=== PATIENT | male | born 1985 | race Caucasian/White ===

== ENCOUNTER 2018-03-08 18:36 | Emergency (ER) | payer OTHER, BC ==
[2018-03-08 18:49] VITALS: BP 151/78
--- NOTE | 2018-03-08 19:43 | EDM.PDOC ---
ED HPI GENERAL MEDICAL PROBLEM - General Chief Complaint: Neurological Problem Stated Complaint: LEFT SIDE NUMBNESS AND HEAD AND SHAKES SOB Time Seen by Provider: 03/08/18 19:00 Source of Information: Reports: Patient History Limitations: Reports: No Limitations - History of Present Illness INITIAL COMMENTS - FREE TEXT/NARRATIVE: This is a 32-year-old male. For the last several months he's been having persistent headaches that at times her all over and seemed to be more of a pounding but they always seem to get better when he starts moving around or working. Today after working as he was coming home the headache got markedly worse and he felt like he had some visual changes and his eyes though we never experienced blindness or loss of vision. He got numbness in the left side of his face and numbness in his fingers he felt weak but he was still able to use his left upper extremity. He states he got rather anxious and was breathing rapidly. He denies any nausea and vomiting. He states that getting up and moving around seems to ease the headache up some. He's been to a chiropractor in the past and have them work on his neck but it didn't seem to really help the headaches. Due to the neurological symptoms and the headache he comes to the ER this evening. He states the headache feels more like a pressure that is constant mostly in the back and maybe right side of his head. He's never really had a workup for his headaches since they started. He is feeling a little better now much of the numbness and tingling is easing up. He denies any abdominal cramping denies any recent illnesses has had no diarrhea. 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 Psychiatric History: Reports: Anxiety Social & Family History - Family History Family Medical History: Noncontributory - Tobacco Use Smoking Status *Q: Current Every Day Smoker Years of Tobacco use: 10 Packs/Tins Daily: 1 - Caffeine Use Caffeine Use: Reports: Coffee - Recreational Drug Use Recreational Drug Use: No Drug Use in Last 12 Months: Yes Recreational Drug Type: Reports: Amphetamines (Speed), Marijuana/Hashish, Methamphetamine Recreational Drug Use Frequency: Weekly - Living Situation & Occupation Living situation: Reports: with Family ED ROS GENERAL - Review of Systems Review Of Systems: See Below Constitutional: Denies: Fever, Chills HEENT: Reports: Other (Decreased in hearing, change in vision as per history of present illness) Respiratory: Reports: Shortness of Breath. Denies: Cough Cardiovascular: Denies: Chest Pain Endocrine: Reports: No Symptoms GI/Abdominal: Reports: No Symptoms : Reports: No Symptoms Musculoskeletal: Reports: Other (As per history of present illness) Skin: Reports: No Symptoms Neurological: Reports: No Symptoms (As per history of present illness) Psychiatric: Reports: Anxiety Hematologic/Lymphatic: Reports: No Symptoms ED EXAM, NEURO - Physical Exam Exam: See Below Exam Limited By: No Limitations General Appearance: Alert, WD/WN, No Apparent Distress Eye Exam: Bilateral Eye: Normal Inspection Ears: Normal External Exam, Normal Canal, Normal TMs Nose: Normal Inspection Throat/Mouth: Normal Inspection, Normal Lips, Normal Voice, No Airway Compromise Head Exam: Normocephalic Neck: Supple. No: Carotid Bruit Respiratory/Chest: No Respiratory Distress, Lungs Clear, Normal Breath Sounds Cardiovascular: Regular Rate, Rhythm, No Murmur GI/Abdominal: Soft, Non-Tender Neurological: Alert, Normal Mood/Affect, Other (He complains of some mild tingling or numbness in his left hand and left face but palpation or touching and light touching he can still feel, he has excellent symmetrical warehouse order puller, he has no significant weakness with that left upper extremity noted.) Back Exam: Full Range of Motion Extremities: Normal Inspection, Normal Range of Motion Psychiatric: Normal Affect, Normal Mood Skin Exam: Warm, Dry Course - Vital Signs Last Recorded V/S: Last Vital Signs Temp 99.2 F 03/08/18 18:47 Pulse 84 03/08/18 18:47 Resp 20 03/08/18 18:47 BP 151/78 H 03/08/18 18:47 Pulse Ox 100 03/08/18 18:47 - Orders/Labs/Meds Orders: Active Orders 24 hr Category Date Time Status DRUG SCREEN, URINE [URCHEM] Stat Lab 03/08/18 19:15 Ordered Labs: Laboratory Tests 03/08/18 03/08/18 03/08/18 Range/Units 19:15 19:58 19:58 WBC 8.46 (4.23-9.07) K/mm3 RBC 4.71 (4.63-6.08) M/mm3 Hgb 14.6 (13.7-17.5) gm/L Hct 42.1 (40.1-51.0) % MCV 89.4 (79.0-92.2) fl MCH 31.0 (25.7-32.2) pg MCHC 34.7 (32.2-35.5) g/dl RDW Std Deviation 39.4 (35.1-43.9) fL Plt Count 226 (163-337) K/mm3 MPV 10.1 (9.4-12.3) fl Neut % (Auto) 66.3 (34.0-67.9) % Lymph % (Auto) 18.4 L (21.8-53.1) % [place] % (Auto) 13.4 H (5.3-12.2) % Eos % (Auto) 1.3 (0.8-7.0) Baso % (Auto) 0.4 (0.1-1.2) % Neut # (Auto) 5.61 H (1.78-5.38) K/mm3 Lymph # (Auto) 1.56 (1.32-3.57) K/mm3 [place] # (Auto) 1.13 H (0.30-0.82) K/mm3 Eos # (Auto) 0.11 (0.04-0.54) K/mm3 Baso # (Auto) 0.03 (0.01-0.08) K/mm3 Sodium 140 (136-145) mEq/L Potassium 3.9 (3.5-5.1) mEq/L Chloride 104 (98-107) mEq/L Carbon Dioxide 27 (21-32) mEq/L Anion Gap 12.9 (5-15) BUN 20 H (7-18) mg/dL Creatinine 1.0 (0.7-1.3) mg/dL Est Cr Clr Drug Dosing 103.55 mL/min Estimated GFR (MDRD) > 60 (>60) mL/min BUN/Creatinine Ratio 20.0 H (14-18) Glucose 108 H (74-106) mg/dL Calcium 9.2 (8.5-10.1) mg/dL Total Bilirubin 0.3 (0.2-1.0) mg/dL AST 22 (15-37) U/L ALT 26 (16-63) U/L Alkaline Phosphatase 66 (46-116) U/L Total Protein 7.2 (6.4-8.2) g/dl Albumin 4.2 (3.4-5.0) g/dl Globulin 3.0 gm/dL Albumin/Globulin Ratio 1.4 (1-2) TSH 3rd Generation 2.769 (0.358-3.74) uIU/mL Urine Opiates Screen Negative (NEGATIVE) Ur Buprenorphine Scrn Negative (NEGATIVE) Ur Oxycodone Screen Negative (NEGATIVE) Urine Methadone Screen Negative (NEGATIVE) Ur Propoxyphene Screen Negative (NEGATIVE) Ur Barbiturates Screen Negative (NEGATIVE) Ur Tricyclics Screen Negative (NEGATIVE) Ur Phencyclidine Scrn Negative (NEGATIVE) Ur Amphetamine Screen Negative (NEGATIVE) U Methamphetamines Scrn Negative (NEGATIVE) U Benzodiazepines Scrn Negative (NEGATIVE) U Cocaine Metab Screen Negative (NEGATIVE) U Marijuana (THC) Screen Negative (NEGATIVE) - Radiology Interpretation Free Text/Narrative:: CT scan of the head did not show any acute changes and was very similar to the study done in 10/2016. - Re-Assessments/Exams Free Text/Narrative Re-Assessment/Exam: 03/08/18 20:55 I told the patient the results the CAT scan was normal. He still has a mild headache and I asked him if he wanted anything for the headache and he said no. 03/08/18 22:04 I spoke to the patient and his regarding the CT scan and the blood work. He was exposed to some benzene and hydrocarbon gas from the [place] today that might have exacerbated his headache symptoms. I suggested he wear a respirator since he gets exposed to these gases frequently. He denies any exposure to H2 S gas. I am going to refer him to Dr. 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 The patient is feeling good enough to go home and wants to go home Departure - Departure Time of Disposition: 22:05 Disposition: Home, Self-Care 01 Condition: Good Clinical Impression: Headache, Exposure to polycyclic aromatic hydrocarbons - Discharge Information Referrals: PCP,None [Primary Care Provider] - Leobardo Green MD [Physician] - Forms: ED Department Discharge Additional Instructions: Rest over the weekend, you may do gentle normal activities, certainly take some [id number]-toksdce medication such as Aleve or ibuprofen or Tylenol if the headache seems to worsen, avoid exposure to the benzene and hydrocarbons and wear a respirator when you're around well heads and the tanks, follow-up with Dr. Romero for continued workup for these headaches, return to the ER if there's marked worsening - My Orders Last 24 Hours: My Active Orders 03/08/18 19:15 DRUG SCREEN, URINE [URCHEM] Stat - Assessment/Plan Last 24 Hours: My Active Orders 03/08/18 19:15 DRUG SCREEN, URINE [URCHEM] Stat
--- NOTE | 2018-03-08 20:14 | CT ---
Head CT Technique: Multiple axial sections were obtained through the brain. Intravenous contrast was not utilized. Comparison: Prior head CT exam of 11/10/16. Findings: Ventricles along with basal cisterns and sulci over the convexities are within normal limits for the patient's age. No abnormal parenchymal densities are seen. No evidence of intracranial hemorrhage. No midline shift or mass effect is seen. Bone window settings were reviewed which shows no acute calvarial abnormality. Visualized sinuses are clear. Impression: 1. No acute intracranial abnormality is appreciated. Study appears similar to previous head CT exam. Diagnostic code #1
== END 2018-03-08 22:17 | disposition home or self-care (01) ==
LOC: JD.ED 18:36
DX: R51 Headache (principal); F17.210 Nicotine dependence, cigarettes, uncomplicated; Z77.028 Contact with and (suspected) exposure to other hazardous aromatic compounds
CPT/HCPCS: 36415; 70450; 70450-26; 80053; 80306; 84443; 85025; 99284; 99284-25

== ENCOUNTER 2018-06-29 16:23 | Emergency (ER) | payer SELFPAY ==
[2018-06-29 16:32] VITALS: BP 127/77
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
--- NOTE | 2018-07-01 10:50 | CT ---
Head CT Technique: Multiple axial sections through the brain were obtained. Intravenous contrast was not utilized. Comparison: Prior head CT study of 03/08/18. Findings: Ventricles along with basal cisterns and sulci over the convexities are within normal limits. No abnormal parenchymal densities are seen. No evidence of intracranial hemorrhage. No midline shift or mass effect is seen. Visualized sinuses are clear. No acute calvarial abnormality is seen. Impression: 1. Nothing acute seen on noncontrast head CT study. No significant change is seen from previous study. Diagnostic code #1 I agree with preliminary report issued by [facility] ([facility] report finalized on 06/29/18, 6:13 PM Central Time)
== END 2018-06-29 17:47 | disposition home or self-care (01) ==
LOC: SUPCPDRO 16:23 → JD.ED 16:23
DX: S06.0X0A Concussion without loss of consciousness, initial encounter (principal); I10 Essential (primary) hypertension; V94.0XXA Hitting object or bottom of body of water due to fall from watercraft, initial encounter
CPT/HCPCS: 70450; 70450-26; 99283; 99284-25

== ENCOUNTER 2019-09-14 21:28 | Emergency (ER) | payer SELFPAY ==
[2019-09-14 21:48] VITALS: BP 140/100; PULSE 80
[2019-09-14] MEDS ORDERED: Ondansetron 4 MG/2 ML SDV IVPUSH ONE (22:54)
[2019-09-14] MEDS ORDERED: Sodium Chloride 0.9% 1,000 ML IV SCH (23:00)
--- NOTE | 2019-09-14 23:02 | EDM.PDOC ---
ED HPI GENERAL MEDICAL PROBLEM - General Chief Complaint: Genitourinary Problem Stated Complaint: groin and abdomen pain Time Seen by Provider: 09/14/19 22:35 Source of Information: Reports: Patient History Limitations: Reports: No Limitations - History of Present Illness INITIAL COMMENTS - FREE TEXT/NARRATIVE: Mr. Palma is a pleasant-enough 34-year-old man with a past medical history significant for depression and anxiety, for which she takes clonazepam, as well as long-standing use of amphetamine/methamphetamine and marijuana. He states that he has had pain to the right base of his penis and upper right scrotum on off for the past 2 months, which he states worsened after he intentionally twisted his back while in the shower around 21:00 tonight. At the same time, he developed pain to his right lower quadrant, which is new for him. The pain radiates into his right upper quadrant. He also reports pressure to the right side of his head which has been coming and going for the past year. Prior evaluators have told him that it is related to his anxiety. He states that the pressure to his head recurred en route to the ED. The patient denies having dysuria, but reports having occasional urinary urgency. No recent fever or vomiting, but he states that he has had both nausea and constipation today, and watery diarrhea last night. He reports an occasional cough productive of yellow and black sputum since yesterday. It is unclear if he has been experiencing dyspnea, chest pain, or palpitations, although he said yes when I asked him if he has been experiencing those symptoms. Here in the ED, the patient is afebrile, saturating 99% on room air. The patient's PCP is STEPHAN Gan. The patient has not received an influenza vaccine this season. Right Pelvic Pain Score (Numeric/FACES): 10 - Related Data Allergies Allergy/AdvReac Type Severity Reaction Status Date / Time No Known Allergies Allergy Verified 06/18/18 13:12 Home Meds: Home Meds ClonazePAM [KlonoPIN] 0.5 mg PO Q12H PRN 06/29/18 [History] Past Medical History Psychiatric History: Reports: Anxiety, Depression (untreated) - Past Surgical History HEENT Surgical History: Reports: Oral Surgery (wisdom teeth extraction) Respiratory Surgical History: Reports: Other (See Below) (Bronchoscopy to remove a benign tumor) Social & Family History - Family History Family Medical History: Noncontributory - Tobacco Use Smoking Status *Q: Current Every Day Smoker Years of Tobacco use: 24 Packs/Tins Daily: 1 Packs/Tins Daily Comment: Down from 2 ppd - Caffeine Use Caffeine Use: Reports: Coffee - Alcohol Use Alcohol Use History: Yes Alcohol Use Frequency: Socially - Recreational Drug Use Recreational Drug Use: Yes Drug Use in Last 12 Months: Yes Recreational Drug Type: Reports: Amphetamines (Speed) (last used midAug 2019), Marijuana/Hashish (smokes regularly), Methamphetamine (last smoked/injected Aug 2019) - Living Situation & Occupation Living situation: Reports: , with Spouse, with Family (2 kids) Occupation: Employed ([employer]) ED ROS GENERAL - Review of Systems Review Of Systems: ROS reveals no pertinent complaints other than HPI. ED EXAM, GENERAL - Physical Exam Exam: See Below Exam Limited By: No Limitations General Appearance: Alert, WD/WN, No Apparent Distress Eye Exam: Bilateral Eye: EOMI, Normal Inspection Ears: Normal External Exam, Hearing Grossly Normal Nose: Normal Inspection Throat/Mouth: Normal Inspection, Normal Lips, Normal Voice, No Airway Compromise Head: Atraumatic, Normocephalic Neck: Normal Inspection, Full Range of Motion Respiratory/Chest: No Respiratory Distress, Lungs Clear, Normal Breath Sounds, No Accessory Muscle Use. No: Decreased Breath Sounds, Crackles, Rhonchi, Wheezing, Stridor, Prolonged Expiration Cardiovascular: Normal Peripheral Pulses, Regular Rate, Rhythm, No Edema, No Gallop, No JVD, No Murmur, No Rub Peripheral Pulses: 4+: Radial (L), Radial (R) GI/Abdominal: Normal Bowel Sounds, Soft, No Organomegaly, No Distention, No Abnormal Bruit, No Mass, Tender (Right lower quadrant only. Nontender elsewhere , including to the right upper quadrant.) (Male) Exam: No Hernia, Normal Inspection, Circumcised Rectal (Males) Exam: Deferred Back Exam: Normal Inspection, Full Range of Motion, NT Extremities: Normal Inspection, Normal Range of Motion, No Pedal Edema, Normal Capillary Refill Neurological: Alert, Oriented, Normal Cognition, No Motor/Sensory Deficits Psychiatric: Normal Affect Skin Exam: Warm, Dry, Intact, Normal Color, No Rash EKG INTERPRETATION EKG Date: 09/14/19 Time: 23:28 Rhythm: NSR Rate (Beats/Min): 66 Stem: Normal P-Wave: Present QRS: Normal ST-T: Normal QT: Normal Comparison: No Change (06/18/2018) Course - Vital Signs Last Recorded V/S: Last Vital Signs Temp 36.8 C 09/14/19 21:45 Pulse 80 09/14/19 21:45 Resp 20 09/14/19 21:45 BP 140/100 H 09/14/19 21:45 Pulse Ox 99 09/14/19 21:45 - Orders/Labs/Meds Orders: Active Orders 24 hr Category Date Time Status EKG Documentation Completion [RC] STAT Care 09/14/19 22:56 Active Abdomen Pelvis w Cont [CT] Stat Exams 09/14/19 22:54 Taken Chest 2V [CR] Stat Exams 09/14/19 22:56 Taken Sodium Chloride 0.9% [Normal Saline] 1,000 ml Med 09/14/19 23:00 Active IV ASDIRECTED Medication Orders Sodium Chloride (Normal Saline) 1,000 mls @ 150 mls/hr IV ASDIRECTED TU Last Admin: 09/14/19 23:12 Dose: 150 mls/hr Labs: Laboratory Tests 09/14/19 09/14/19 09/14/19 Range/Units 23:12 23:12 23:12 WBC 11.41 H (4.23-9.07) K/mm3 RBC 4.81 (4.63-6.08) M/mm3 Hgb 14.7 (13.7-17.5) gm/dl Hct 42.6 (40.1-51.0) % MCV 88.6 (79.0-92.2) fl MCH 30.6 (25.7-32.2) pg MCHC 34.5 (32.2-35.5) g/dl RDW Std Deviation 38.8 (35.1-43.9) fL Plt Count 287 (163-337) K/mm3 MPV 9.9 (9.4-12.3) fl Neutrophils % (Manual) 65 H (40-60) % Band Neutrophils % 0 (0-10) % Lymphocytes % (Manual) 21 (20-40) % Atypical Lymphs % 0 % Monocytes % (Manual) 12 H (2-10) % Eosinophils % (Manual) 1 (0.8-7.0) % Basophils % (Manual) 1 (0.2-1.2) Platelet Estimate Adequate Plt Morphology Comment Normal RBC Morph Comment Normal D-Dimer, Quantitative 0.20 (0.19-0.50) mg/L Sodium 139 (136-145) mEq/L Potassium 3.8 (3.5-5.1) mEq/L Chloride 103 (98-107) mEq/L Carbon Dioxide 27 (21-32) mEq/L Anion Gap 12.8 (5-15) BUN 19 H (7-18) mg/dL Creatinine 0.9 (0.7-1.3) mg/dL Est Cr Clr Drug Dosing 120.54 mL/min Estimated GFR (MDRD) > 60 (>60) mL/min BUN/Creatinine Ratio 21.1 H (14-18) Glucose 104 (74-106) mg/dL Calcium 8.8 (8.5-10.1) mg/dL Magnesium 2.0 (1.8-2.4) mg/dl Total Bilirubin 0.4 (0.2-1.0) mg/dL AST 14 L (15-37) U/L ALT 24 (16-63) U/L Alkaline Phosphatase 67 (46-116) U/L Troponin I < 0.017 (0.00-0.056) ng/mL Total Protein 7.2 (6.4-8.2) g/dl Albumin 4.1 (3.4-5.0) g/dl Globulin 3.1 gm/dL Albumin/Globulin Ratio 1.3 (1-2) Lipase 77 (73-393) U/L Urine Color (Yellow) Urine Appearance (Clear) Urine pH (5.0-8.0) Ur Specific [place] (1.005-1.030) Urine Protein (Negative) Urine Glucose (UA) (Negative) Urine Ketones (Negative) Urine Occult Blood (Negative) Urine Nitrite (Negative) Urine Bilirubin (Negative) Urine Urobilinogen (0.2-1.0) Ur Leukocyte Esterase (Negative) Urine RBC (0-5) /hpf Urine WBC (0-5) /hpf Ur Epithelial Cells (0-5) /hpf Urine Bacteria (FEW) /hpf Urine Mucus (FEW) /hpf Urine Opiates Screen (EYWCRM=661) Ur Buprenorphine Scrn (CUTOFF=10) Ur Oxycodone Screen (HNB5ZQ=253) Urine Methadone Screen (NVE6UR=479) Ur Propoxyphene Screen (HPZXHQ=552) Ur Barbiturates Screen (ZATIHF=944) Ur Tricyclics Screen (FETLWO=667) Ur Phencyclidine Scrn (CUTOFF=25) Ur Amphetamine Screen (RWKOQN=961) U Methamphetamines Scrn (RYYFIF=062) U Benzodiazepines Scrn (CQIRFO=381) U Cocaine Metab Screen (TWVQOX=342) U Marijuana (THC) Screen (CUTOFF=50) 09/14/19 09/14/19 Range/Units 23:59 23:59 WBC (4.23-9.07) K/mm3 RBC (4.63-6.08) M/mm3 Hgb (13.7-17.5) gm/dl Hct (40.1-51.0) % MCV (79.0-92.2) fl MCH (25.7-32.2) pg MCHC (32.2-35.5) g/dl RDW Std Deviation (35.1-43.9) fL Plt Count (163-337) K/mm3 MPV (9.4-12.3) fl Neutrophils % (Manual) (40-60) % Band Neutrophils % (0-10) % Lymphocytes % (Manual) (20-40) % Atypical Lymphs % % Monocytes % (Manual) (2-10) % Eosinophils % (Manual) (0.8-7.0) % Basophils % (Manual) (0.2-1.2) Platelet Estimate Plt Morphology Comment RBC Morph Comment D-Dimer, Quantitative (0.19-0.50) mg/L Sodium (136-145) mEq/L Potassium (3.5-5.1) mEq/L Chloride (98-107) mEq/L Carbon Dioxide (21-32) mEq/L Anion Gap (5-15) BUN (7-18) mg/dL Creatinine (0.7-1.3) mg/dL Est Cr Clr Drug Dosing mL/min Estimated GFR (MDRD) (>60) mL/min BUN/Creatinine Ratio (14-18) Glucose (74-106) mg/dL Calcium (8.5-10.1) mg/dL Magnesium (1.8-2.4) mg/dl Total Bilirubin (0.2-1.0) mg/dL AST (15-37) U/L ALT (16-63) U/L Alkaline Phosphatase (46-116) U/L Troponin I (0.00-0.056) ng/mL Total Protein (6.4-8.2) g/dl Albumin (3.4-5.0) g/dl Globulin gm/dL Albumin/Globulin Ratio (1-2) Lipase (73-393) U/L Urine Color Light yellow (Yellow) Urine Appearance Clear (Clear) Urine pH 6.0 (5.0-8.0) Ur Specific [place] 1.010 (1.005-1.030) Urine Protein Negative (Negative) Urine Glucose (UA) Negative (Negative) Urine Ketones Negative (Negative) Urine Occult Blood Negative (Negative) Urine Nitrite Negative (Negative) Urine Bilirubin Negative (Negative) Urine Urobilinogen 0.2 (0.2-1.0) Ur Leukocyte Esterase Negative (Negative) Urine RBC 0-5 (0-5) /hpf Urine WBC 0-5 (0-5) /hpf Ur Epithelial Cells Not seen (0-5) /hpf Urine Bacteria Rare (FEW) /hpf Urine Mucus Rare (FEW) /hpf Urine Opiates Screen Negative (BLJAHQ=075) Ur Buprenorphine Scrn Negative (CUTOFF=10) Ur Oxycodone Screen Negative (YTY5SD=476) Urine Methadone Screen Negative (EFR5UK=862) Ur Propoxyphene Screen Negative (ZGWQFC=703) Ur Barbiturates Screen Negative (RCRVIZ=518) Ur Tricyclics Screen Negative (ANXPBB=379) Ur Phencyclidine Scrn Negative (CUTOFF=25) Ur Amphetamine Screen Presumptive positive H (NGHCDP=470) U Methamphetamines Scrn Presumptive positive H (KCKHWZ=546) U Benzodiazepines Scrn Negative (JSZDLY=109) U Cocaine Metab Screen Negative (BFMADC=292) U Marijuana (THC) Screen Negative (CUTOFF=50) Meds: Medications Generic Name Dose Route Start Last Admin Trade Name Freq PRN Reason Stop Dose Admin Sodium Chloride 1,000 mls @ 150 mls/hr 09/14/19 23:00 09/14/19 23:12 Normal Saline IV 150 mls/hr ASDIRECTED TU Administration Discontinued Medications Generic Name Dose Route Start Last Admin Trade Name Freq PRN Reason Stop Dose Admin Iopamidol 100 ml 09/15/19 00:11 09/15/19 00:14 Isovue-300 (61%) IVPUSH 09/15/19 00:12 100 ml ONETIME ONE Administration Ondansetron HCl 4 mg 09/14/19 22:54 09/14/19 23:12 Zofran IVPUSH 09/14/19 22:55 4 mg ONETIME ONE Administration - Re-Assessments/Exams Free Text/Narrative Re-Assessment/Exam: 09/14/19 22:58 I strongly suspect that the patient's use of methamphetamine is influencing leif's presentation, however, if I were to take the patient at his word, then I would be concerned about appendicitis or pneumonia, or, less likely, a PE or dysrhythmia related to methamphetamine use, or, much less likely, a UTI. I have ordered a rather extensive workup that includes blood work, a urinalysis , a urine drug screen, a chest x-ray, a CT of his abdomen and pelvis with oral and IV contrast, and an ECG. In the meantime, the patient will receive IV fluid and IV Zofran. 09/15/19 00:48 CT of the abdomen and pelvis with oral and IV contrast is read by [facility] as "No acute findings." 2-view chest radiograph appears to be grossly normal. The cardiac silhouette is within normal limits. No pulmonary vascular congestion. No pleural effusions. No focal infiltrate. No pneumothorax. Formal read per the Radiologist pending. 09/15/19 03:09 Test results discussed with the patient. Leif's workup is unremarkable, and does not explain the cause of his symptoms. He is not anemic. No significant Flexeril at abnormalities were found. He is not dehydrated. He does not of a urinary tract infection. He does not have pneumonia. He does not have appendicitis. No recent damage to his heart was found. He does not have a pulmonary embolus. No dysrhythmias were found. The only abnormality that we found is that his urine drug screen is positive for both amphetamine and methamphetamine, which we anticipated, since he acknowledged that he used both last week. I recommended to the patient that he follow-up with his PCP, STEPHAN Gan, if his symptoms persist. The patient agreed. Departure - Departure Time of Disposition: 03:11 Disposition: Home, Self-Care 01 Condition: Good Clinical Impression: Right lower quadrant abdominal pain of unknown etiology, Headache, Methamphetamine abuse - Discharge Information *PRESCRIPTION DRUG MONITORING PROGRAM REVIEWED*: Not Applicable *COPY OF PRESCRIPTION DRUG MONITORING REPORT IN PATIENT YEN: Not Applicable Referrals: Justin Reese PA-C [Physician National Sales Manager] - Forms: ED Department Discharge Additional Instructions: You were seen in the emergency room for pain to your right groin and lower right abdomen, radiating to your upper right abdomen, along with head pressure, urinary urgency, and occasional cough, nausea, constipation, watery diarrhea, shortness of breath, chest pain, and palpitations. Workup in the ER included blood work, a urinalysis, a urine drug screen, a chest x-ray, a CT scan of your abdomen and pelvis with oral and IV contrast, and an ECG. Urine drug screen was positive for both amphetamine and methamphetamine, otherwise, your entire workup was unremarkable. You do not have appendicitis. You do not have pneumonia. You do not have a blood clot in your lungs. He have not had a recent heart attack, and no abnormal rhythms were found on your ECG. You are not anemic, and no significant electrolyte abnormalities were found. We strongly recommend that you seek professional help to stop using amphetamine and methamphetamine. If your symptoms persist, we recommend that you follow-up with your PCP, STEPHAN Gan, for further evaluation. If any other problems, please do not hesitate to return to the ER. - My Orders Last 24 Hours: My Active Orders 09/14/19 22:54 Abdomen Pelvis w Cont [CT] Stat 09/14/19 22:56 EKG Documentation Completion [RC] STAT Chest 2V [CR] Stat 09/14/19 23:00 Sodium Chloride 0.9% [Normal Saline] 1,000 ml IV ASDIRECTED - Assessment/Plan Last 24 Hours: My Active Orders 09/14/19 22:54 Abdomen Pelvis w Cont [CT] Stat 09/14/19 22:56 EKG Documentation Completion [RC] STAT Chest 2V [CR] Stat 09/14/19 23:00 Sodium Chloride 0.9% [Normal Saline] 1,000 ml IV ASDIRECTED
[2019-09-15] MEDS ORDERED: Iopamidol 612 MG/ML 100 ML Bottle IVPUSH ONE (00:11)
--- NOTE | 2019-09-15 06:54 | CR ---
Chest: Two views of the chest were obtained. Comparison: Prior chest x-ray of 06/18/18. Heart size and mediastinum are within normal limits. Lungs shows a nodule within the left mid chest which is stable from prior study in 2016 and therefore felt to be incidental. Lungs otherwise are clear. Bony structures appear within normal limits for the patient's age. Impression: 1. Nodule within the left mid chest seen on prior study from 2016. This is therefore incidental. 2. Nothing acute is appreciated on two-view chest x-ray. Diagnostic code #2
--- NOTE | 2019-09-15 07:05 | CT ---
CT abdomen and pelvis Technique: Multiple axial sections were obtained from above the dome of the diaphragm inferiorly through the pubic symphysis. Intravenous and oral contrast was utilized. Delayed images were also obtained through the bladder. Comparison: No prior abdominal imaging is available. Findings: Liver contains no focal abnormality. Spleen appears within normal limits. Adrenal glands show no nodule. Pancreas is within normal limits. Kidneys show symmetric contrast enhancement without hydronephrosis or mass. Gallbladder contains no calcified gallstones. Aorta shows no aneurysm. No retroperitoneal adenopathy or mesenteric abnormalities are seen. No pelvic mass or adenopathy is seen. No free fluid or inflammatory change is seen. Slight increased stool is noted within the colon. Appendix not visualized with certainty. Bone window settings were reviewed which appear within normal limits for the patient's age. Delayed images show contrast within the bladder as well as within the distal ureters. Impression: 1. Nothing acute is appreciated on CT study of the abdomen and pelvis. 2. Appendix not visualized with certainty. 3. Mild increased stool within the colon. Diagnostic code #2 I agree with preliminary report from [facility], finalized on 09/15/19, 1:32 AM Central Time
== END 2019-09-15 03:40 | disposition home or self-care (01) ==
LOC: JD.ED 21:28
DX: R10.31 Right lower quadrant pain (principal); R51 Headache; F15.10 Other stimulant abuse, uncomplicated; F41.9 Anxiety disorder, unspecified; F17.210 Nicotine dependence, cigarettes, uncomplicated
CPT/HCPCS: 36415; 71046; 74177; 80053; 80306; 81001; 83690; 83735; 84484; 85007; 85027; 85379; 93005; 96361; 96374; 99284; J2405; J7040; Q9967; 93010; 99283

== ENCOUNTER 2020-10-26 02:57 | Emergency (ER) | payer SELFPAY ==
[2020-10-26 03:12] VITALS: BP 137/90; PULSE 82
[2020-10-26] MEDS ORDERED: Haloperidol Lactate 5 MG/ML SDV IM ONE (03:33)
[2020-10-26] MEDS ORDERED: Benztropine 1 MG Tab PO STA (03:33)
--- NOTE | 2020-10-26 03:38 | EDM.PDOC ---
ED HPI GENERAL MEDICAL PROBLEM - General Chief Complaint: General Stated Complaint: RIGHT SIDE NUMB Time Seen by Provider: 10/26/20 03:19 Source of Information: Reports: Patient History Limitations: Reports: No Limitations - History of Present Illness INITIAL COMMENTS - FREE TEXT/NARRATIVE: Mr. Palma is a very pleasant 35-year-old gentleman who now presents to the ED with right face and body tingling, along with right head pressure and right eye blurry vision, that began around 2:00 this morning, after he was woken by hearing a "pop" in his head. He denies having a headache, per se. No associated nausea. He states that his tingling and numbness has improved since its onset. He did not take any [id number] or home remedies prior to coming to the ED. The patient states that he has had similar symptoms numerous times, about once a month, over the past 2 years. He has been seeing his PCP, who has ordered work- ups that includes CT scans and MRIs, all of which have been unremarkable. He states that his PCP believes that his symptoms are due to anxiety, currently being treated by clonazepam on an as-needed basis, although the patient states that he does not believe that his symptoms are related to anxiety. He expects to be referred to a Neurologist for further evaluation, although an appointment has not yet been made. Here in the ED, the patient is found to be hemodynamically stable, afebrile, saturating 96% on room air. Other than his recurrent symptoms as above, the patient also reports having recent constipation. Otherwise, the patient denies having a recent fever, chills, sore throat, ear pain, nasal or sinus congestion, cough, dyspnea, chest pain, palpitations, nausea, vomiting, diarrhea, abdominal pain, urinary symptoms, recent weight gain or weight loss, recent bloody bowel movements or black bowel movements, recent joint aches, headaches, or rashes. The patient's PCP is STEPHAN Gna. He has not received an influenza vaccine this season, and declined an offer to receive one here today. Headache Pain Score (Numeric/FACES): 3 - Related Data Allergies Allergy/AdvReac Type Severity Reaction Status Date / Time No Known Allergies Allergy Verified 10/26/20 03:04 Home Meds: Home Meds ClonazePAM [KlonoPIN] 0.5 mg PO Q12H PRN 06/29/18 [History] Rizatriptan Benzoate [Rizatriptan] 1 tab PO ASDIRECTED PRN #3 tab.rapdis 10/26/20 [Rx] Past Medical History Psychiatric History: Reports: Anxiety - Past Surgical History HEENT Surgical History: Reports: Oral Surgery (dental extractions) Respiratory Surgical History: Reports: Other (See Below) (Bronchoscopy for benign airway tumor) Social & Family History - Tobacco Use Tobacco Use Status *Q: Current Every Day Tobacco User Years of Tobacco use: 24 Packs/Tins Daily: 1 Packs/Tins Daily Comment: Down from 2 ppd - Caffeine Use Caffeine Use: Reports: Coffee - Alcohol Use Alcohol Use History: No - Recreational Drug Use Recreational Drug Use: Yes Drug Use in Last 12 Months: Yes Recreational Drug Type: Reports: Marijuana/Hashish (smokes about twice a week), Methamphetamine (last smoked, injected around 2015), Psilocybin (Mushrooms) (last took around 2009), Other (see below) (The patient states that he has taken many other drugs in the past, except heroin) - Living Situation & Occupation Living situation: Reports: , with Spouse, with Family (2 kids) Occupation: Unemployed ED ROS GENERAL - Review of Systems Review Of Systems: Comprehensive ROS is negative, except as noted in HPI. ED EXAM, NEURO - Physical Exam Exam: See Below Exam Limited By: No Limitations General Appearance: Alert, WD/WN, No Apparent Distress Eye Exam: Bilateral Eye: EOMI, Normal Inspection Ears: Normal External Exam, Hearing Grossly Normal Nose: Normal Inspection Throat/Mouth: Normal Inspection, Normal Lips, Normal Voice, No Airway Compromise Head Exam: Atraumatic, Normocephalic Neck: Normal Inspection, Full Range of Motion Respiratory/Chest: No Respiratory Distress, Lungs Clear, Normal Breath Sounds, No Accessory Muscle Use Cardiovascular: Normal Peripheral Pulses, Regular Rate, Rhythm, No Edema, No Gallop, No JVD, No Murmur, No Rub GI/Abdominal: Normal Bowel Sounds, Soft, Non-Tender, No Organomegaly, No Distention, No Abnormal Bruit, No Mass Neurological: Alert, Normal Dorsiflexion, CN II-XII Intact, Normal Plantar Flexion, Oriented x 3, Other (Normal motor function of the bilateral upper and lower extremities. The patient reports slightly decreased sensation to the right side of his head/face, into his right upper and lower extremities.) Back Exam: Normal Inspection, Full Range of Motion, NT Extremities: Normal Inspection, Normal Range of Motion, No Pedal Edema, Normal Capillary Refill Psychiatric: Normal Affect Skin Exam: Warm, Dry, Intact, Normal Color, No Rash Course - Vital Signs Last Recorded V/S: Last Vital Signs Temp 36.4 C 10/26/20 03:07 Pulse 82 10/26/20 03:07 Resp 17 10/26/20 03:07 BP 137/90 10/26/20 03:07 Pulse Ox 96 10/26/20 03:07 - Orders/Labs/Meds Meds: Medications Discontinued Medications Generic Name Dose Route Start Last Admin Trade Name Tereso PRN Reason Stop Dose Admin Benztropine Mesylate 1 mg 10/26/20 03:33 10/26/20 03:47 Cogentin PO 10/26/20 03:34 1 mg ONETIME STA Administration Haloperidol Lactate 5 mg 10/26/20 03:33 10/26/20 03:46 Haldol IM 10/26/20 03:34 5 mg ONETIME ONE Administration - Re-Assessments/Exams Free Text/Narrative Re-Assessment/Exam: 10/26/20 03:33 As above, the patient woke this morning after hearing a pop in his head, then developed right-sided tingling/numbness, which has since improved, although not yet resolved. While he denies having a headache, he does report having right- sided head pressure and some blurry vision. No associated nausea. He states that he has been getting similar symptoms about once a month over the past 2 years, and that he has undergone work-ups including CT scans and MRIs, all of which have been negative. He states that his symptoms are thought to be due to anxiety, and while it has been suggested that they might be due to migraines, he has not been treated with any anti-migraine medicines thus far. He is hemodynamically stable and afebrile. His oxygen saturation is 96% on room air. His neurologic exam reveals subtle decrease sensation on the right side of his face and body, otherwise, his neurologic examination is normal. Because he has had imaging studies already, I do not see an indication to repeat that again, however, I do think it would be appropriate to treat him for a migraine with a neuroleptic. If his symptoms improve, I can prescribe for him an anti-migraine medicine such as rizatriptan. 10/26/20 04:19 The patient reports complete resolution of his right-sided tingling/numbness, essentially confirming that his symptoms were due to a migraine. I will discharge him home with a prescription for rizatriptan. Departure - Departure Time of Disposition: 04:20 Disposition: Home, Self-Care 01 Condition: Good Clinical Impression: Migraine - Discharge Information *PRESCRIPTION DRUG MONITORING PROGRAM REVIEWED*: Not Applicable *COPY OF PRESCRIPTION DRUG MONITORING REPORT IN PATIENT YEN: Not Applicable Referrals: Justin Reese PA-C [Primary Care Provider] - Forms: ED Department Discharge Additional Instructions: You were seen in the emergency room after waking up by hearing a pop, followed by right face and body tingling/numbness with right head pressure. You were treated with a neuroleptic medication in the ER, with resolution of your symptoms. Based on your history and physical examination, your symptoms were due to a migraine. Stay adequately hydrated, and get plenty of rest in a dark, quiet place. A prescription for the anti-migraine medicine rizatriptan (Maxalt) has been sent to the [facility]. Dissolve 1 tablet of rizatriptan in your mouth, like a lozenge, at the earliest onset of migraine symptoms. You may repeat after 2 hours, if necessary, to a maximum of 3 tablets within a 24-hour period. If this medicine works to treat your symptoms, talk to your PCP, STEPHAN Gan, about getting an additional prescription. If any other problems, please do not hesitate to return to the ER. Sepsis Event Note (ED) - Evaluation Sepsis Screening Result: No Definite Risk - Focused Exam Vital Signs: Vital Signs Temp Pulse Resp BP Pulse Ox 10/26/20 03:07 36.4 C 82 17 137/90 96
== END 2020-10-26 04:33 | disposition home or self-care (01) ==
LOC: JD.ED 02:57
DX: G43.909 Migraine, unspecified, not intractable, without status migrainosus (principal); F17.210 Nicotine dependence, cigarettes, uncomplicated
CPT/HCPCS: 96372; 99283; A9270; J1630

== ENCOUNTER 2020-12-03 14:10 | Emergency (ER) | payer SELFPAY | END 2020-12-03 14:16 | disposition left against medical advice (07) | LOC: JD.ED 14:10 | DX: Z53.21 Procedure and treatment not carried out due to patient leaving prior to being seen by health care provider (principal) ==

== ENCOUNTER 2020-12-12 04:22 | Emergency (ER) | payer SELFPAY ==
--- NOTE | 2020-12-12 07:16 | EDM.PDOC ---
ED HPI GENERAL MEDICAL PROBLEM - General Chief Complaint: Headache Stated Complaint: [facility] Time Seen by Provider: 12/12/20 06:04 Source of Information: Reports: Patient, EMS History Limitations: Reports: No Limitations - History of Present Illness INITIAL COMMENTS - FREE TEXT/NARRATIVE: The patient presents by [facility] for a headache and anxiety. The pat han got 2mg of Ativan IV, toradol 60mg IV and benadryl 50mg IV. It was very busy in the ER and I just arrived and the patient was sleeping a couple hours before I examined him. He did have a headache but that is gone. He has a history of migraines. He has no fever, chills, cough, congestion, runny nose, chest pain, shortness of breath, nausea, vomiting, numbness or weakness. Onset: Gradual Duration: Hour(s): Location: Reports: Head Quality: Reports: Sharp Severity: Severe Improves with: Reports: None Worsens with: Reports: None Associated Symptoms: Reports: Headaches. Denies: Chest Pain, Cough, Fever/Chills, Nausea/Vomiting, Shortness of Breath - Related Data Allergies Allergy/AdvReac Type Severity Reaction Status Date / Time No Known Allergies Allergy Verified 10/26/20 03:04 Home Meds: Home Meds ClonazePAM [KlonoPIN] 0.5 mg PO Q12H PRN 06/29/18 [History] Rizatriptan Benzoate [Rizatriptan] 1 tab PO ASDIRECTED PRN #3 tab.rapdis 10/26/20 [Rx] Past Medical History - Past Health History Medical/Surgical History: Denies Medical/Surgical History Cardiovascular History: Reports: Hypertension, Other (See Below) Other Cardiovascular History: has not been on medication for this-just to watch his b/p Other Respiratory History: patient had bronchoscopy 6 years ago for 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 Psychiatric History: Reports: Anxiety - Past Surgical History HEENT Surgical History: Reports: Oral Surgery (dental extractions) Respiratory Surgical History: Reports: Other (See Below) (Bronchoscopy for benign airway tumor) Social & Family History - Family History Family Medical History: No Pertinent Family History - Tobacco Use Tobacco Use Status *Q: Unknown Ever Used Tobacco - Caffeine Use Caffeine Use: Reports: Coffee - Living Situation & Occupation Living situation: Reports: , with Spouse, with Family (2 kids) Occupation: Unemployed ED ROS GENERAL - Review of Systems Review Of Systems: See Below Constitutional: Reports: No Symptoms HEENT: Reports: No Symptoms Respiratory: Reports: No Symptoms Cardiovascular: Reports: No Symptoms Endocrine: Reports: No Symptoms GI/Abdominal: Reports: No Symptoms : Reports: No Symptoms Musculoskeletal: Reports: No Symptoms - Physical Exam Exam: See Below Exam Limited By: Other (The patient was sleepy and I had to wake him up to examine him) General Appearance: Other (sleepy) Ears: Normal External Exam Nose: Normal Inspection Head Exam: Atraumatic, Normocephalic Neck: Normal Inspection Respiratory/Chest: No Respiratory Distress, Lungs Clear, Normal Breath Sounds Cardiovascular: Regular Rate, Rhythm, No Edema, No Murmur GI/Abdominal: Soft, Non-Tender, No Organomegaly, No Mass Neuro Exam (Abbreviated): Alert, Oriented, No Motor/Sensory Deficits Extremities: Normal Inspection Course - Vital Signs Last Recorded V/S: Last Vital Signs Temp 97 F 12/12/20 04:53 Pulse 80 12/12/20 04:53 Resp 16 12/12/20 04:53 BP 116/72 12/12/20 04:53 Pulse Ox 93 L 12/12/20 04:53 - Orders/Labs/Meds Orders: Active Orders 24 hr Category Date Time Status Cardiac Monitoring [RC] . DIRECTED Care 12/12/20 07:16 Active Labs: Laboratory Tests 12/12/20 12/12/20 Range/Units 07:30 07:30 WBC 9.18 H (4.23-9.07) K/mm3 RBC 4.81 (4.63-6.08) M/mm3 Hgb 14.7 (13.7-17.5) gm/dl Hct 43.9 (40.1-51.0) % MCV 91.3 (79.0-92.2) fl MCH 30.6 (25.7-32.2) pg MCHC 33.5 (32.2-35.5) g/dl RDW Std Deviation 40.7 (35.1-43.9) fL Plt Count 301 (163-337) K/mm3 MPV 9.4 (9.4-12.3) fl Neut % (Auto) 64.8 (34.0-67.9) % Lymph % (Auto) 24.0 (21.8-53.1) % [place] % (Auto) 9.8 (5.3-12.2) % Eos % (Auto) 1.0 (0.8-7.0) Baso % (Auto) 0.2 (0.1-1.2) % Neut # (Auto) 5.95 H (1.78-5.38) K/mm3 Lymph # (Auto) 2.20 (1.32-3.57) K/mm3 [place] # (Auto) 0.90 H (0.30-0.82) K/mm3 Eos # (Auto) 0.09 (0.04-0.54) K/mm3 Baso # (Auto) 0.02 (0.01-0.08) K/mm3 Sodium 143 (136-145) mEq/L Potassium 4.2 (3.5-5.1) mEq/L Chloride 106 (98-107) mEq/L Carbon Dioxide 28 (21-32) mEq/L Anion Gap 13.2 (5-15) BUN 12 (7-18) mg/dL Creatinine 1.1 (0.7-1.3) mg/dL Est Cr Clr Drug Dosing TNP Estimated GFR (MDRD) > 60 (>60) mL/min BUN/Creatinine Ratio 10.9 L (14-18) Glucose 108 H (74-106) mg/dL Calcium 8.7 (8.5-10.1) mg/dL Total Bilirubin 0.5 (0.2-1.0) mg/dL AST 21 (15-37) U/L ALT 27 (16-63) U/L Alkaline Phosphatase 66 (46-116) U/L Total Protein 7.0 (6.4-8.2) g/dl Albumin 3.9 (3.4-5.0) g/dl Globulin 3.1 gm/dL Albumin/Globulin Ratio 1.3 (1-2) Ethyl Alcohol 0.00 (0.00) gm% - Re-Assessments/Exams Free Text/Narrative Re-Assessment/Exam: 12/12/20 07:16 I will get some labs. 12/12/20 08:47 His CBC and CMP look good. His ETOH is negative. I will discharge him home. His headache is gone and he has been sleeping. Departure - Departure Time of Disposition: 08:50 Disposition: Home, Self-Care 01 Condition: Good Clinical Impression: Migraine Qualifiers: Migraine type: other Status migrainosus presence: without status migrainosus Intractability: not intractable Qualified Code(s): G43.809 - Other migraine, not intractable, without status migrainosus - Discharge Information *PRESCRIPTION DRUG MONITORING PROGRAM REVIEWED*: Not Applicable *COPY OF PRESCRIPTION DRUG MONITORING REPORT IN PATIENT YEN: Not Applicable Referrals: Justin Reese PA-C [Primary Care Provider] - Forms: ED Department Discharge Additional Instructions: Go home and rest. Follow up with Justin Reese within a week. Please return if you are worse. Sepsis Event Note (ED) - Evaluation Sepsis Screening Result: No Definite Risk - Focused Exam Vital Signs: Vital Signs Temp Pulse Resp BP Pulse Ox 12/12/20 04:53 97 F 80 16 116/72 93 L - My Orders Last 24 Hours: My Active Orders 12/12/20 07:16 Cardiac Monitoring [RC] . DIRECTED - Assessment/Plan Last 24 Hours: My Active Orders 12/12/20 07:16 Cardiac Monitoring [RC] . DIRECTED
[2020-12-12 09:20] VITALS: BP 126/78; PULSE 78
== END 2020-12-12 09:00 | disposition home or self-care (01) ==
LOC: JD.ED 04:22
DX: G43.809 Other migraine, not intractable, without status migrainosus (principal); I10 Essential (primary) hypertension
CPT/HCPCS: 36415; 80053; 80179; 85025; 99283; 99284

== ENCOUNTER 2021-08-21 01:54 | Emergency (ER) | payer SELFPAY ==
[2021-08-21 02:20] VITALS: PULSE 98
== END 2021-08-21 03:57 | disposition left against medical advice (07) ==
LOC: JD.ED 01:54
DX: Z53.21 Procedure and treatment not carried out due to patient leaving prior to being seen by health care provider (principal)

== ENCOUNTER 2021-12-23 03:23 | Emergency (ER) | payer SELFPAY ==
[2021-12-23 03:41] VITALS: BP 147/100; PULSE 85
== END 2021-12-23 04:30 | disposition home or self-care (01) ==
LOC: JD.ED 03:23
DX: F45.8 Other somatoform disorders (principal); K21.9 Gastro-esophageal reflux disease without esophagitis; F17.210 Nicotine dependence, cigarettes, uncomplicated; Z79.899 Other long term (current) drug therapy
CPT/HCPCS: 99283

== ENCOUNTER 2022-01-02 13:52 | Emergency (ER) | payer SELFPAY ==
[2022-01-02 14:10] VITALS: BP 144/92; PULSE 85
[2022-01-02] MEDS ORDERED: Sodium Chloride 0.9% 10 ML Syringe FLUSH PRN (14:31)
[2022-01-02] MEDS ORDERED: LORazepam 1 MG Tab PO ONE (14:33)
[2022-01-02] MEDS ORDERED: Sodium Chloride 0.9% 1,000 ML IV STA (16:05)
== END 2022-01-02 18:42 | disposition home or self-care (01) ==
LOC: JD.ED 13:52
DX: F41.9 Anxiety disorder, unspecified (principal); I10 Essential (primary) hypertension; K21.9 Gastro-esophageal reflux disease without esophagitis; Z79.899 Other long term (current) drug therapy
CPT/HCPCS: 36415; 70450; 70450-26; 71045; 71045-26; 80053; 80306; 83735; 83880; 84484; 85025; 85379; 85610; 93005; 93010; 99284-25; 99285; A9270-GY; J7030

== ENCOUNTER 2023-09-14 22:40 | Emergency (ER) | payer SELFPAY ==
[2023-09-14 23:36] VITALS: BP 149/93; PULSE 94
[2023-09-14 23:53] LABS: BASOPHILS PERCENT AUTO 0.4 % (0.0-1.0); EOSINOPHILS ABSOLUTE AUTO 0.1 K/mm3 (0.0-0.4); HEMATOCRIT 41.6 % (42.0-52.0); HEMOGLOBIN 14.5 gm/dl (14.0-18.0); IMMATURE GRAN ABSOLUTE AUTO 0.04 K/mm3 (0.00-0.05); IMMATURE GRAN PERCENT AUTO 0.4 % (0.0-0.4); LYMPHOCYTES ABSOLUTE AUTO 1.8 K/mm3 (1.0-4.8); MEAN CORPUSCULAR HEMOGLOBIN 31.6 pg (28.0-32.0); MEAN CORPUSCULAR HGB CONC 34.9 g/dl (32.0-36.0); MEAN CORPUSCULAR VOLUME 90.6 fl (83.0-99.0); MEAN PLATELET VOLUME 9.1 fl (9.4-12.4); MONOCYTES ABSOLUTE AUTO 1.5 K/mm3 (0.0-0.8); MONOCYTES PERCENT AUTO 13.7 % (0.0-8.0); NEUTROPHILS ABSOLUTE AUTO 7.5 K/mm3 (1.8-7.7); NEUTROPHILS PERCENT AUTO 68.5 % (41.0-71.0); PLATELET COUNT,PLT 232 K/mm3 (150-400); RED BLOOD CELL COUNT 4.59 M/mm3 (4.52-5.90); WHITE BLOOD CELL COUNT,WBC 10.98 K/mm3 (3.9-11.3)
[2023-09-15 00:11] LABS: INR 0.95; PROTHROMBIN TIME 10.2 SECONDS (9.7-12.0)
[2023-09-15 00:14] LABS: D-DIMER QUANTITATIVE 0.52 mg/L (0.19-0.50)
[2023-09-15 00:17] LABS: ALBUMIN 3.8 g/dl (3.4-5.0); ANION GAP 10.8 (5-15); BILIRUBIN TOTAL 0.3 mg/dL (0.2-1.0); CALCIUM 9.3 mg/dL (8.5-10.1); EST CRCL DRUG DOSING (CG) 101.14 mL/min; MAGNESIUM 1.8 mg/dL (1.8-2.4); POTASSIUM,K 3.8 mEq/L (3.5-5.1); PROTEIN TOTAL,TP 7.6 g/dl (6.4-8.2)
[2023-09-15 02:04] LABS: CORONAVIRUS COVID-19 NAA NEGATIVE (NEGATIVE); INFLUENZA A NAA NEGATIVE (NEGATIVE)
== END 2023-09-15 02:00 | disposition left against medical advice (07) ==
LOC: JD.ED 22:40
DX: R07.81 Pleurodynia (principal); I10 Essential (primary) hypertension; K21.9 Gastro-esophageal reflux disease without esophagitis; F17.210 Nicotine dependence, cigarettes, uncomplicated; Z20.822 Contact with and (suspected) exposure to COVID-19; Z79.899 Other long term (current) drug therapy
CPT/HCPCS: 0240U; 36415; 71045; 80053; 83735; 84484; 85025; 85379; 85610; 93005; 99285

== ENCOUNTER 2023-10-31 17:09 | Emergency (ER) | payer SELFPAY ==
[2023-10-31 17:18] VITALS: BP 146/95; PULSE 89
== END 2023-10-31 18:35 | disposition left against medical advice (07) ==
LOC: JD.ED 17:09
DX: Z53.21 Procedure and treatment not carried out due to patient leaving prior to being seen by health care provider (principal)

== ENCOUNTER 2025-08-10 04:02 | Emergency (ER) | payer MEDICAID ==
[2025-08-10] MEDS: Sodium Chloride 0.9% 10 ML Syringe FLUSH PRN ×2 (04:44→04:59)
[2025-08-10 04:45] LABS: BASOPHILS ABSOLUTE AUTO 0.1 K/mm3 (0.0-0.2); BASOPHILS PERCENT AUTO 0.8 % (0.0-1.0); EOSINOPHILS ABSOLUTE AUTO 0.2 K/mm3 (0.0-0.4); EOSINOPHILS PERCENT AUTO 2.3 % (0.0-6.0); IMMATURE GRAN ABSOLUTE AUTO 0.03 K/mm3 (0.00-0.05); IMMATURE GRAN PERCENT AUTO 0.3 % (0.0-0.4); LYMPHOCYTES ABSOLUTE AUTO 3.0 K/mm3 (1.0-4.8); LYMPHOCYTES PERCENT AUTO 33.3 % (24.0-44.0); MEAN PLATELET VOLUME 9.5 fl (9.4-12.4); MONOCYTES ABSOLUTE AUTO 1.0 K/mm3 (0.0-0.8); MONOCYTES PERCENT AUTO 11.0 % (0.0-8.0); NEUTROPHILS ABSOLUTE AUTO 4.7 K/mm3 (1.8-7.7); NEUTROPHILS PERCENT AUTO 52.3 % (41.0-71.0); NRBC ABSOLUTE 0.00 (0.00-0.02); NRBC PERCENT 0.0 % (0.0-0.2); PLATELET COUNT,PLT 326 K/mm3 (150-400); RED BLOOD CELL COUNT 4.98 M/mm3 (4.52-5.90); WHITE BLOOD CELL COUNT,WBC 8.97 K/mm3 (3.9-11.3)
[2025-08-10] MEDS: Iopamidol 755 Mg/ML 100 ML Bottle IVPUSH ONE (04:59)
[2025-08-10 05:15] LABS: A/G RATIO 1.2 (1-2); ALANINE AMINOTRANSFERASE,ALT 31 U/L (16-63); ASPARTATE AMNIOTRANSFERASE,AST 18 U/L (15-37); BILIRUBIN TOTAL 0.3 mg/dL (0.2-1.0); BLOOD UREA NITROGEN,BUN 16 mg/dL (7-18); CARBON DIOXIDE,CO2 28 mEq/L (21-32); CHLORIDE,CL 101 mEq/L (98-107); CREATININE 1.0 mg/dL (0.7-1.3); EST CRCL DRUG DOSING (CG) 99.18 mL/min; ESTIMATED GFR 98 mL/min (>60); GLUCOSE RANDOM 123 mg/dL (70-99); PHOSPHORUS 3.9 mg/dL (2.6-4.7); POTASSIUM,K 3.4 mEq/L (3.5-5.1); PROTEIN TOTAL,TP 7.4 g/dl (6.4-8.2); SODIUM,NA 139 mEq/L (136-145)
[2025-08-10 05:55] VITALS: BP 132/96; PULSE 81
== END 2025-08-10 05:54 | disposition home or self-care (01) ==
LOC: JD.ED 04:02
DX: R51.9 Headache, unspecified (principal); I10 Essential (primary) hypertension
CPT/HCPCS: 36415; 70450; 70496; 70498; 80053; 83735; 84100; 85025; 85652; 86140; 93005; 99284; Q9967